=== PATIENT | male | born 1960 | race Caucasian/White ===

== ENCOUNTER 2020-06-13 10:12 | Inpatient (IN) | payer OTHER ==
[~2020-06-13] VITALS: Ht 180.3 cm; Wt 120.7 kg
--- NOTE | 2020-06-13 10:18 | NUR ---
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 DR. ESCOBEDO AT BEDSIDE FOR EVAL. PATIENT A/OX4, BREATHING EVEN AND UNLABORED, C/O SEVERE PAIN ON RIGHT ANKLE. NEEDS ATTENDED. ATTACHED TO THE LABORER MINE.
[2020-06-13] MEDS ORDERED: ONDANSETRON HCL/PF 4 MG/2 ML VIAL ONE (10:29)
[2020-06-13] MEDS ORDERED: IV NS 0.9% 1,000 ML BAG IV ONE (10:30)
[2020-06-13] MEDS ORDERED: ONDANSETRON HCL/PF - ER 4 MG/2 ML VIAL IV ONE (10:30)
--- NOTE | 2020-06-13 10:32 | NUR ---
TRAFFIC WORKFORCE REPRESENTATIVE AT BEDSIDE FOR XRAY.
--- NOTE | 2020-06-13 11:13 | NUR ---
CALLED [facility]
[2020-06-13] MEDS ORDERED: HYDROMORPHONE 1 MG/1 ML DISP.SYRIN ONE ×2 (11:16→12:59)
--- NOTE | 2020-06-13 11:18 | NUR ---
CALLED [phone] DR. FIORE.
[2020-06-13] MEDS ORDERED: HYDROMORPHONE 1 MG/1 ML DISP.SYRIN IV ONE ×2 (11:30→13:00)
[2020-06-13 12:03] LABS: BASOPHILS # (AUTO) 0.1 /CMM (0.0-0.2); BASOPHILS % (AUTO) 0.8 % (0.0-2.0); EOSINOPHILS % (AUTO) 0.5 % (0.0-6.0); HEMATOCRIT 43 % (39-51); HEMOGLOBIN 14.5 g/dL (13.5-17.5); LYMPHOCYTES # (AUTO) 1.3 /CMM (0.8-4.8); LYMPHOCYTES % (AUTO) 13.4 % (20.0-44.0); MEAN CORPUSCULAR HGB CONC 34 g/dl (31.0-36.0); MEAN CORPUSCULAR VOLUME 86 fL (80-96); MONOCYTES # (AUTO) 0.5 /CMM (0.1-1.30); MONOCYTES % (AUTO) 5.2 % (2.0-12.0); NEUTROPHILS # (AUTO) 7.8 /CMM (1.8-8.9); NEUTROPHILS % (AUTO) 80.1 % (43.0-81.0); PLATELET COUNT (AUTO) 154 /CMM (150-450); RED BLOOD CELL COUNT(AUTO) 5.06 MIL/uL (4.5-6.0); WHITE BLOOD COUNT (AUTO) 9.7 K/uL (4.3-11.0)
--- NOTE | 2020-06-13 12:08 | NUR ---
CALLED DR. FIORE [phone] LEFT [facility] AGAIN.
--- NOTE | 2020-06-13 12:14 | NUR ---
RIGHT LOWER LEG HAS BEEN SPLINTED.
[2020-06-13 12:22] LABS: CALCIUM, SERUM 8.9 mg/dL (8.5-10.1); CREATININE 1.4 mg/dL (0.6-1.3); POTASSIUM 3.4 mmol/L (3.5-5.1)
--- NOTE | 2020-06-13 12:49 | NUR ---
PATIENT RESTING, NO DISTRESS NOTED.
--- NOTE | 2020-06-13 13:24 | NUR ---
call placed for dr burnett
--- NOTE | 2020-06-13 13:27 | NUR ---
SPOKE WITH OFFICE STAFF DR. FIORE WILL BE GOING TO THE OFFICE IN AN HOUR AND IS BEING PAGED.
[2020-06-13] MEDS ORDERED: ACETAMINOPHEN 325 MG TABLET PO PRN (14:00)
[2020-06-13] MEDS ORDERED: ONDANSETRON HCL/PF 4 MG/2 ML VIAL IVP PRN (14:00)
[2020-06-13] MEDS ORDERED: MAGNESIUM HYDROXIDE 30 ML UDC PO PRN (14:00)
[2020-06-13] MEDS ORDERED: TEMAZEPAM 15 MG CAPSULE PO PRN (14:00)
[2020-06-13] MEDS ORDERED: MAG HYDROX/AL HYDROX/SIMETH 30 ML UDC PO PRN (14:00)
[2020-06-13] MEDS ORDERED: HYDROMORPHONE INJ 2 MG/ML DISP.SYRIN IV PRN (14:00)
[2020-06-13] MEDS ORDERED: HYDROCODONE/APAP 5/325MG TABLET PO PRN (14:00)
[2020-06-13] MEDS ORDERED: Z GUARD REMEDY 2 OZ OINT TP PRN (14:00)
--- NOTE | 2020-06-13 14:20 | NUR ---
CALLED LAB AGAIN... ASKING FOR 15 MORE MINS.
--- NOTE | 2020-06-13 14:59 | NUR ---
BED 322-2
--- NOTE | 2020-06-13 15:18 | NUR ---
REPORT GIVEN TO SANTIAGO VASQUEZ FOR ELOINA.
--- NOTE | 2020-06-13 15:27 | NUR ---
PATIENT TRANSFERRED TO ROOM 322-2 IN STABLE CONDITION. NO DISTRESS NOTED.
[2020-06-13 15:30] VITALS: BP 145/89
--- NOTE | 2020-06-13 15:30 | NUR ---
MS RN RECEIVED A NEW ADMISSION FROM ER, 60 YEAR OLD MALE, CAME IN W/ RIGHT ANKLE FRACTURE SECONDARY TO FALL, AWAKE,ALERT,ORIENTED X4,RIGHT ANKLE WITH SPLINT AND DRESSING,CLEAN AND DRY, DENIES PAIN AT THIS TIME.
--- NOTE | 2020-06-13 16:00 | NUR ---
MS RN DUE MEDS GIVEN, TOLERATED WELL.
[2020-06-13] MEDS: HYDROMORPHONE 1 MG/1 ML DISP.SYRIN IV PRN ×2 (16:01→22:34)
[2020-06-13] MEDS: IV NS 0.9% 1,000 ML IV PRN (16:01)
--- NOTE | 2020-06-13 18:00 | NUR ---
MS RN ON BED, NO DISTRESS NOTED, WILL ENDORSE TO PLANER HAND FOR CONTINUITY OF CARE.
--- NOTE | 2020-06-13 19:30 | NUR ---
RN NOTE NURSING REPORT RECEIVED FROM SANTIAGO VASQUEZ. RECEIVED PATIENT IN BED, AO X4, IN NO S/SX OF ACUTE DISTRESS AT THIS TIME. NO SOB NOTED. PATIENT'S BREATHING IS EVEN AND UNLABORED. PATIENT SATURATING AT 98% ON ROOM AIR. NOTED IV SITE AT L HAND 18G, PATENT AND FLUSHING WELL, NO S/S OF INFECTION OR INFILTRATION, WITH NS INFUSING AT 100 ML/HR. SAFETY MEASURES IMPLEMENTED PER PROTOCOL. CALL LIGHT WITHIN REACH OF THE PATIENT. WILL CONTINUE TO MONITOR AND REASSESS FOR ANY CHANGES.
[2020-06-13 20:00] VITALS: BP 169/91
[2020-06-13] MEDS ORDERED: HEPARIN SODIUM, PORCINE 5000 UNITS/1 ML VIAL SQ SCH (21:00)
[2020-06-13] MEDS: FAMOTIDINE/PF INJ 20 MG/2 ML VIAL IV SCH (21:12)
--- NOTE | 2020-06-13 22:10 | NUR ---
RN NOTE HEPARIN 5000 UNITS GIVEN SCHEDULED, HOWEVER, PATIENT IS SCHEDULED FOR R ANKLE ORIF 06/14/2020 8430 VERIFIED WITH PRAKASH VASQUEZ. PRAKASH VASQUEZ WAS MADE AWARE, DR HEREDIA WAS NOTIFIED, ACKNOWLEDGED AND SAID IT IS OK, DISCONTINUE HEPARIN SODIUM 5000 UNITS FOR NOW, AND WILL PROCEED WITH PROCEDURE SCHEDULED. Addendum: 06/13/20 at 2344 by BRANDON SMITH RN NO ORDERS FOR SURGERY NOTED ON FILE. PATIENT AND UNAWARE OF UPCOMING PROCEDURE. ADVISED THEM RN WILL FOLLOW UP WITH . PRAKASH VASQUEZ MADE AWARE.
[2020-06-14] MEDS: HYDROMORPHONE 1 MG/1 ML DISP.SYRIN IV PRN (05:15)
[2020-06-14] MEDS: IV NS 0.9% 1,000 ML IV PRN (06:01)
--- NOTE | 2020-06-14 06:45 | NUR ---
RN NOTE PATIENT PICKED BY KEVIN AND TAKEN TO [facility] FOR R ANKLE ORIF IN STABLE CONDITION WITH VS FOLLOWS: BP 149/79, P 88, T 97.9, O2 96%. LINE MECHANIC MADE AWARE.
[2020-06-14] MEDS ORDERED: BUPIVACAINE 0.5 % PF 150 MG/30 ML VIAL ONE (07:00)
[2020-06-14] MEDS ORDERED: ANESTHESIA TRAY IN PYXIS 1 EA TRAY MC ONE (07:00)
[2020-06-14] MEDS ORDERED: BACITRACIN 50000 UNITS/VIAL ONE (07:01)
[2020-06-14] MEDS ORDERED: HYDROMORPHONE INJ 2 MG/ML DISP.SYRIN ONE (07:22)
[2020-06-14] MEDS ORDERED: MIDAZOLAM HCL 2 MG/2ML VIAL ONE ×2 (07:22→07:23)
[2020-06-14] MEDS ORDERED: PANTOPRAZOLE 40 MG VIAL IV SCH (09:00)
[2020-06-14] MEDS: FAMOTIDINE/PF INJ 20 MG/2 ML VIAL IV SCH ×2 (09:00→20:38)
[2020-06-14] MEDS ORDERED: VANCOMYCIN 1 GM VIAL ONE (09:13)
[2020-06-14] MEDS ORDERED: HYDROMORPHONE 1 MG/1 ML DISP.SYRIN ONE (09:54)
--- NOTE | 2020-06-14 11:19 | NUR ---
RN-NOTES PATIENT IS BACK IN THE UNIT AWAKE,ALERT X4 NO ACUTE DISTRESS NOTED. RIGHT ANKLE WAS WRAP WITH BANDAGE, PATIENT ABLE TO WIGLE HIS TOES, DENIES ANY PAIN AT THIS TIME. WILL CONT. MONITORING FOR ANY ADVERSE CHANGES.
[2020-06-14] MEDS ORDERED: HYDROCODONE/APAP 10/325MG TABLET PO PRN (12:30)
[2020-06-14] MEDS: IV D5/0.45 NACL W/20 MEQ KCL 1L IV PRN ×2 (15:24)
[2020-06-14 16:00] VITALS: BP 129/68
[2020-06-14] MEDS: ANCEF 1 GM/50 ML D5W IV SCH ×2 (18:02)
--- NOTE | 2020-06-14 18:52 | NUR ---
Patient lives locally with his family. He was ambulatory and independent prior to admission. He went today for ORIF of right distal tibia fibula s/p fall. Might need FWW and home or outpt PT per PT eval Addendum: 06/14/20 at 1852 by ELENITA GARCIA RN Amended: Links added.
--- NOTE | 2020-06-14 18:55 | NUR ---
Patient lives locally with his family. He was ambulatory and independent prior to admission. He went today for ORIF of right distal tibia fibula fracture. Might need FWW and home or outpt PT per PT eval Addendum: 06/14/20 at 1855 by ELENITA GARCIA RN Amended: Links added.
--- NOTE | 2020-06-14 19:48 | NUR ---
RN-NOTES PATIENT LAYING IN BED INTERMITTENTLY SLEEPING,NO ACUTE DISTRESS NOTED,NO BLEEDING NOTED ON RIGHT FOOT . IV LINE INTACT NO S/SX OF COMPLICATION NOTED. ENDORSE TO INCOMING NURSE FOR CONTINUITY OF CARE.
[2020-06-14 20:00] VITALS: BP 154/73
--- NOTE | 2020-06-14 20:00 | NUR ---
ms asa initial notes received report from am nurse and seen pt in bed awake and alert with IVF infusing at this time , complaining of pain on his right foot from s/p surgery today02/19 and he's asking for his pain shot . Dressings dry and intact and offload both heels. no signs of any distress noted. kept him warm and comfortable at all times. will continue monitoring.
[2020-06-14] MEDS: MORPHINE SULFATE INJ 4 MG/ML DISP.SYRIN IV PRN ×2 (20:38→22:57)
--- NOTE | 2020-06-14 20:45 | NUR ---
MS/RN NOTES PATIENT STATES PAIN IN RIGHT FOOT. MORPHINE 4 MG IV GIVEN. V/S ARE STABLE.
--- NOTE | 2020-06-14 21:15 | NUR ---
ms asa notes checked if the pain relieved from morphine shot. he stated its better but still have pain but tolerable maybe because of the screw that they put in. offered ice pack but he refused. kept him warm and comfortable at all times place call light at reach.
[2020-06-14 23:21] LABS: BASOPHILS # (AUTO) 0.1 /CMM (0.0-0.2); BASOPHILS % (AUTO) 0.8 % (0.0-2.0); EOSINOPHILS % (AUTO) 0.1 % (0.0-6.0); HEMATOCRIT 38 % (39-51); HEMOGLOBIN 12.9 g/dL (13.5-17.5); LYMPHOCYTES # (AUTO) 1.7 /CMM (0.8-4.8); LYMPHOCYTES % (AUTO) 19.9 % (20.0-44.0); MEAN CORPUSCULAR HGB CONC 34 g/dl (31.0-36.0); MEAN CORPUSCULAR VOLUME 85 fL (80-96); MONOCYTES # (AUTO) 0.8 /CMM (0.1-1.30); MONOCYTES % (AUTO) 9.3 % (2.0-12.0); NEUTROPHILS # (AUTO) 5.8 /CMM (1.8-8.9); NEUTROPHILS % (AUTO) 69.9 % (43.0-81.0); PLATELET COUNT (AUTO) 157 /CMM (150-450); RED BLOOD CELL COUNT(AUTO) 4.43 MIL/uL (4.5-6.0); WHITE BLOOD COUNT (AUTO) 8.4 K/uL (4.3-11.0)
[2020-06-14 23:29] LABS: CALCIUM, SERUM 8.3 mg/dL (8.5-10.1); CREATININE 1.3 mg/dL (0.6-1.3); PHOSPHORUS 1.9 mg/dL (2.5-4.9); POTASSIUM 3.8 mmol/L (3.5-5.1)
[2020-06-14 23:41] LABS: THYROID STIMULATING HORMONE 0.623 uIU/mL (0.358-3.74)
[2020-06-15] MEDS: ANCEF 1 GM/50 ML D5W IV SCH ×4 (00:37→08:06)
--- NOTE | 2020-06-15 01:53 | NUR ---
ms utility specialist notes' pt sleeping at this time. breathing even and unlabored not in any acute distress or any discomfort noted at this time. will continue monitoring.
[2020-06-15] MEDS: MORPHINE SULFATE INJ 4 MG/ML DISP.SYRIN IV PRN ×4 (02:53→15:03)
[2020-06-15] MEDS: IV D5/0.45 NACL W/20 MEQ KCL 1L IV PRN ×2 (07:01)
--- NOTE | 2020-06-15 07:30 | NUR ---
RN Initial Notes: Received pt. asleep on bed with an ongoing IV of D5 1/2NS + 20 meq KCL running at 75ml/hr. Pt. is sleeping comfortably, no sign of distress noted. Will continue to monitor.
--- NOTE | 2020-06-15 07:43 | NUR ---
machine bunch maker closing notes pt seem comfortable after pain meds given but saying sometimes he feel much pain specially when he moved. endorse to am nurse for continuity of care.
[2020-06-15 07:53] LABS: CALCIUM, SERUM 8.3 mg/dL (8.5-10.1); CREATININE 1.3 mg/dL (0.6-1.3); POTASSIUM 3.6 mmol/L (3.5-5.1)
[2020-06-15 08:00] VITALS: BP 140/75
[2020-06-15] MEDS: FAMOTIDINE/PF INJ 20 MG/2 ML VIAL IV SCH (09:26)
--- NOTE | 2020-06-15 14:42 | NUR ---
Victorino INWARD TOLL OPERATOR seen pt. and with an order to D/C home with home health physical therapy. Pt. to follow up with surgery team in 2 weeks and to follow up with primary care physician in 1 week. Per Victorino pt. was cleared already by the surgeon for discharge.
[2020-06-15] MEDS ORDERED: HYDR-4354 PO (15:23)
--- NOTE | 2020-06-15 16:05 | NUR ---
Per charge nurse Dr. Benavidez gave a verbal order that pt. is cleared for discharge and charge nurse notified Janneth the case checker for the home health with the Physical therapy.
[2020-06-15 16:10] VITALS: BP 119/75
--- NOTE | 2020-06-15 16:50 | NUR ---
Pt. left the unit with belongings and wheeled by staff to the lobby. Left without distress, instructed on meds to continue at home and to make a follow up with psych and medical doctors and verbalizes understanding. Pt. was picked up by his son Dm by a private car.
[2020-06-15] MEDS ORDERED: FAMOTIDINE (20 MG) 20 MG TABLET PO SCH (21:00)
== END 2020-06-15 17:00 | disposition home health service (06) | DRG 492 ==
LOC: ER 10:15 → MED 15:00
PROVIDERS: ADMIT Nurse Practitioner Acute Care; ATTEND Nurse Practitioner Acute Care
PROC: 0QSG04Z Reposition Right Tibia with Internal Fixation Device, Open Approach (ICD-10-PCS; principal; 2020-06-14)
PROC: 0QSJ04Z Reposition Right Fibula with Internal Fixation Device, Open Approach (ICD-10-PCS; 2020-06-14)
DX: S82.871A Displaced pilon fracture of right tibia, initial encounter for closed fracture (principal); N17.0 Acute kidney failure with tubular necrosis; Y92.008 Other place in unspecified non-institutional (private) residence as the place of occurrence of the external cause; W11.XXXA Fall on and from ladder, initial encounter; E66.9 Obesity, unspecified; I10 Essential (primary) hypertension; Z68.37 Body mass index [BMI] 37.0-37.9, adult; Z20.828 Contact with and (suspected) exposure to other viral communicable diseases; S50.311A Abrasion of right elbow, initial encounter; E87.6 Hypokalemia
CPT/HCPCS: 36415; 71045-TC; 73590-TC; 73600-TC; 80048-TC; 80061-TC; 83735-TC; 84100-TC; 84443-TC; 85025-TC; 85730-TC; 87081-TC; 93307-TC; 97112-TC; 97116-TC; 97530-TC; A6402; C1713; C9803; G0378; J0690; J1100; J1170; J1644; J1885; J2250; J2270; J2405; J2704; J3370; J3480; J3490; J7030; J7060